=== PATIENT | female | born 1975 | race Caucasian/White ===

== ENCOUNTER 2020-04-20 21:05 | Emergency (ER) | payer MEDICAID ==
[~2020-04-20] VITALS: Ht 170.2 cm; Wt 99.8 kg
[2020-04-20 21:15] VITALS: BP_SYST 144
--- NOTE | 2020-04-20 21:15 | NUR ---
Patient to ER bed 5 to gown for evaluation. Side rails up.
--- NOTE | 2020-04-20 21:49 | NUR ---
Patient is a&ox4 came from home complaining of shortness of breath, chest tightness, cough, and fever. Patient reports she traveled to [facility], [facility], then back to the [place] on March 18. While in [facility] patient was tested for COVID 19 and results came back negative. patient returned to the [facility] but her symptoms persisted and continued to worsen, she visited urgent care and was prescribed an inhaler. Her last known fever was April 08. Patient denies pain in the neck, jaw, arm. patient went to the today and was told to come to the emergency room. Patient has a hx of hypothyroidism. No other medical complaints at the time.
--- NOTE | 2020-04-20 21:49 | NUR ---
ER Dr. Zapata at bedside examining patient.
--- NOTE | 2020-04-20 22:23 | NUR ---
Lab at bedside.
[2020-04-20 22:29] LABS: BASOPHILS # (AUTO) 0.1 K/uL (0.0-0.2); BASOPHILS % (AUTO) 0.7 % (0.0-2.0); EOSINOPHILS # (AUTO) 0.1 K/uL (0.0-0.4); EOSINOPHILS % (AUTO) 1.5 % (0.0-4.0); HEMOGLOBIN 14.6 g/dL (12.0-16.0); LYMPHOCYTES # (AUTO) 2.6 K/uL (1.0-5.5); LYMPHOCYTES % (AUTO) 31.7 % (20.5-51.5); MEAN CORPUSCULAR HEMOGLOBIN 30 pg (27-31); MEAN CORPUSCULAR HGB CONC 34 % (32-36); MEAN CORPUSCULAR VOLUME 88 fL (79.0-98.0); MONOCYTES # (AUTO) 0.3 K/uL (0.0-1.0); NEUTROPHILS % (AUTO) 62.1 % (40.0-70.0); PLATELET COUNT (AUTO) 255 K/uL (130-430); RED BLOOD CELL COUNT(AUTO) 4.89 MIL/uL (4.2-6.2); RED CELL DISTRIBUTION WIDTH 13.9 % (9.0-15.0); WHITE BLOOD COUNT (AUTO) 8.1 K/uL (4.8-10.8)
[2020-04-20 22:42] LABS: ANION GAP 10 (5-15); CALCIUM 9.1 mg/dL (8.4-11.0); CHLORIDE 105 mmol/L (98-107); CREATININE 0.94 mg/dL (0.55-1.30); GLUCOSE 92 mg/dL (70-99); POTASSIUM 3.7 mmol/L (3.5-5.1); SODIUM SERUM 139 mmol/L (136-145); UREA NITROGEN, BLOOD 12 mg/dL (8-21)
[2020-04-20 22:51] LABS: ALANINE AMINOTRANSFERASE 30 U/L (12-78); ALBUMIN 4.1 g/dL (3.4-4.8); ASPARTATE AMINOTRANSFERASE 32 U/L (10-37); GFR AFRICAN AMERICAN 83 mL/min (>90); TOTAL BILIRUBIN 0.5 mg/dL (0.0-1.0)
[2020-04-20 23:20] VITALS: BP_SYST 133
--- NOTE | 2020-04-20 23:20 | NUR ---
Patient given written and verbal discharge instructions and verbalizes understanding. ER MD discussed with patient the results and treatment provided. Patient in stable condition. ID arm band removed. No Rx given. Patient educated on pain management and to follow up with PMD. Pain Scale 0/10. Opportunity for questions provided and answered. Medication side effect fact sheet provided.
--- NOTE | 2020-04-27 09:52 | NUR ---
Patient was called and notified her "Not Detected" COVID-19 laboratory test results and instructed to follow the protective preventive measures ([employer]).
== END 2020-04-20 23:20 | disposition home or self-care (01) ==
LOC: SED 21:05
DX: J06.9 Acute upper respiratory infection, unspecified (principal); E03.9 Hypothyroidism, unspecified; Z20.828 Contact with and (suspected) exposure to other viral communicable diseases
CPT/HCPCS: 36415; 71045; 80053; 84484; 85025; 85379; 99284; U0003